=== PATIENT | male | born 1965 | race Hispanic/Latino ===

== ENCOUNTER 2021-09-30 10:00 | Observation (INO) | payer OTHER ==
[~2021-09-30] VITALS: Ht 177.8 cm; Wt 104.3 kg
[2021-09-30 10:44] LABS: BASOPHILS % (AUTO) 0.9 % (0.0-5.0); EOSINOPHILS % (AUTO) 1.4 % (0.0-8.0); MEAN CORPUSCULAR HEMOGLOBIN 30.5 pg (27.0-33.0); MEAN CORPUSCULAR HGB CONC 34.4 g/dL (32.0-36.0); MEAN CORPUSCULAR VOLUME 88.6 fL (79-99); MONOCYTES % (AUTO) 8.8 % (3.0-13.0); NEUTROPHILS % (AUTO) 62.4 % (40.0-77.0); PLATELET COUNT (AUTO) 240 K/uL (130-400); RED BLOOD CELL COUNT(AUTO) 4.63 MIL/uL (4.50-6.20); RED CELL DISTRIBUTION WIDTH 12.3 % (11.0-15.5); WHITE BLOOD COUNT (AUTO) 7.4 K/uL (4.8-10.8)
[2021-09-30 10:55] LABS: INR 1.04 (0.85-1.15); PROTHROMBIN TIME 11.3 SEC (9.6-11.6)
[2021-09-30 11:02] LABS: APPEARANCE,URINE Clear (CLEAR); BILIRUBIN,URINE Negative (NEGATIVE); COLOR,URINE Yellow (YELLOW); GLUCOSE, URINE (UA) Negative (NEGATIVE); KETONES,URINE Negative (NEGATIVE); LEUKOCYTE ESTERASE ,URINE Negative (NEGATIVE); NITRATE,URINE Negative (NEGATIVE); OCCULT BLOOD,URINE Negative (NEGATIVE); PROTEIN,URINE Negative (NEGATIVE)
[2021-09-30 11:02] LABS: CREATININE 0.9 mg/dL (0.5-1.5); POTASSIUM 4.1 mmol/L (3.5-5.1)
[2021-10-01 08:14] VITALS: BP 145/83
[2021-10-01] MEDS ORDERED: LEVO75CA5 PO (09:28)
[2021-10-01] MEDS ORDERED: ATOR40TA71 PO (09:28)
[2021-10-04] VITALS (28 sets, daily range): BP systolic 123–179; BP diastolic 59–96
[2021-10-04] MEDS: CEFAZOLIN SODIUM 2 GM VIAL IV SCH ×3 (05:00→18:18)
[2021-10-04] MEDS ORDERED: CEFAZOLIN SODIUM 1 GM VIAL ONE ×2 (08:49→10:12)
[2021-10-04] MEDS ORDERED: LACTATED RINGERS 1000ML 1,000 ML IV ONE (08:50)
[2021-10-04] MEDS ORDERED: SUCCINYLCHOLINE CHLORIDE 20 MG/ML 10 ML VIAL ONE (09:54)
[2021-10-04] MEDS ORDERED: DEXAMETHASONE SOD PHOSPHATE 10MG/ML 1ML VIAL ONE ×2 (09:54→11:32)
[2021-10-04] MEDS ORDERED: LIDOCAINE PF 100MG/5ML (2%) SYRINGE 5ML ONE (09:54)
[2021-10-04] MEDS ORDERED: ONDANSETRON 4MG INJ ONE (09:55)
[2021-10-04] MEDS ORDERED: MIDAZOLAM HCL 1 MG/ML 2ML VIAL ONE (09:55)
[2021-10-04] MEDS ORDERED: GLYCOPYRROLATE 1 MG/5 ML SYRINGE ONE (09:55)
[2021-10-04] MEDS ORDERED: NEOSTIGMINE 5MG/5ML SYR IV ONE (09:55)
[2021-10-04] MEDS ORDERED: FENTANYL CITRATE PF 50 MCG/1 ML 2ML VIAL ONE ×3 (09:55→14:11)
[2021-10-04] MEDS ORDERED: PROPOFOL 10 MG/ML 20ML VIAL IV ONE (09:55)
[2021-10-04] MEDS ORDERED: ROCURONIUM 10MG/1ML SYR 10 MG/ML ML ONE ×2 (09:56→11:45)
[2021-10-04] MEDS ORDERED: TRANEXAMIC ACID 1000MG/10ML ONE ×2 (10:12→15:19)
[2021-10-04] MEDS ORDERED: MEPERIDINE-PF 25 MG/ML SYG ONE ×2 (13:52→15:26)
[2021-10-04] MEDS ORDERED: CALCIUM CARB 500MG PO PRN (14:30)
[2021-10-04] MEDS ORDERED: POTASSIUM CHLORIDE 10% ELIXIR 20 MEQ/15 ML UDCUP PO PRN (14:30)
[2021-10-04] MEDS ORDERED: POTASSIUM CHLORIDE 20MEQ/100ML 100 ML IV PRN (14:30)
[2021-10-04] MEDS ORDERED: ONDANSETRON 4MG INJ IVP PRN (14:30)
[2021-10-04] MEDS ORDERED: KCL 20 MEQ ERTAB PO PRN (14:30)
[2021-10-04] MEDS ORDERED: TRAMADOL HCL 50 MG TABLET PO PRN (14:30)
[2021-10-04] MEDS ORDERED: FERROUS FUMARATE 324 MG TABLET PO PRN (14:30)
[2021-10-04] MEDS ORDERED: DiphenhydrAMINE HCL 50 MG/ML VIAL IVP PRN (14:30)
[2021-10-04] MEDS ORDERED: LIDOCAINE HCL-MPF 1% 2ML VIAL IV PRN (14:30)
[2021-10-04] MEDS: ACETAMINOPHEN 500 MG TABLET PO SCH ×2 (14:30→20:22)
[2021-10-04] MEDS ORDERED: TEMAZEPAM 15 MG CAPSULE PO PRN (14:30)
[2021-10-04] MEDS ORDERED: KETOROLAC 15MG/ML VIAL (15MG/ML) IV PRN (14:30)
[2021-10-04] MEDS ORDERED: 0.9%NACL 1000ML 1,000 ML IV SCH (14:30)
[2021-10-04] MEDS ORDERED: HYDRALAZINE 20MG/ML VIAL ONE (15:35)
[2021-10-04] MEDS: OXYCODONE HCL 5 MG TAB PO PRN ×2 (17:31→17:33)
[2021-10-04] MEDS ORDERED: FAMOTIDINE 20MG TAB ONE (19:17)
[2021-10-04] MEDS ORDERED: CELECOXIB 200 MG CAP ONE (19:17)
[2021-10-04] MEDS ORDERED: ATORVASTATIN 40 MG TABLET ONE (19:18)
[2021-10-04] MEDS ORDERED: ASPIRIN 81 MG EC TAB ONE (19:18)
[2021-10-04] MEDS ORDERED: PREGABALIN 25 MG CAP ONE (19:19)
[2021-10-04] MEDS: PREGABALIN 25 MG CAP PO SCH (20:21)
[2021-10-04] MEDS: CEFAZOLIN SODIUM 1 GM VIAL IVP SCH (20:21)
[2021-10-04] MEDS: CELECOXIB 200 MG CAP PO SCH (20:21)
[2021-10-04] MEDS: FAMOTIDINE 20MG TAB PO SCH (20:21)
[2021-10-04] MEDS: ATORVASTATIN 40 MG TABLET PO SCH (20:22)
[2021-10-04] MEDS: ASPIRIN 81 MG EC TAB PO SCH (20:22)
[2021-10-05] MEDS: CEFAZOLIN SODIUM 1 GM VIAL IVP SCH (02:57)
[2021-10-05] MEDS: OXYCODONE HCL 5 MG TAB PO PRN ×5 (03:04→23:35)
[2021-10-05 04:00] VITALS: BP 122/64
[2021-10-05 05:33] LABS: HEMATOCRIT 35.2 % (42-54); MEAN CORPUSCULAR HEMOGLOBIN 30.3 pg (27.0-33.0); MEAN CORPUSCULAR HGB CONC 33.8 g/dL (32.0-36.0); MEAN CORPUSCULAR VOLUME 89.6 fL (79-99); RED BLOOD CELL COUNT(AUTO) 3.93 MIL/uL (4.50-6.20); RED CELL DISTRIBUTION WIDTH 12.5 % (11.0-15.5); WHITE BLOOD COUNT (AUTO) 12.4 K/uL (4.8-10.8)
[2021-10-05] MEDS: LEVOTHYROXINE 75 MCG TABLET PO SCH (05:59)
[2021-10-05] MEDS: ACETAMINOPHEN 500 MG TABLET PO SCH ×3 (05:59→20:55)
[2021-10-05 07:25] VITALS: BP 126/63
[2021-10-05] MEDS: POLYETHYLENE GLYCOL 3350 17 GM POWD.PACK PO SCH (08:00)
[2021-10-05] MEDS: CELECOXIB 200 MG CAP PO SCH ×2 (08:01→20:14)
[2021-10-05] MEDS: TAMSULOSIN HCL 0.4 MG CAP.ER.24H PO SCH (08:01)
[2021-10-05] MEDS: ASPIRIN 81 MG EC TAB PO SCH ×2 (08:02→20:14)
[2021-10-05] MEDS: FAMOTIDINE 20MG TAB PO SCH ×2 (08:02→20:14)
[2021-10-05] MEDS: PREGABALIN 25 MG CAP PO SCH ×2 (08:02→20:14)
[2021-10-05 11:00] VITALS: BP 139/77
[2021-10-05 15:20] VITALS: BP 145/54
[2021-10-05 20:00] VITALS: BP 121/61
[2021-10-05] MEDS: ATORVASTATIN 40 MG TABLET PO SCH (20:14)
[2021-10-06] VITALS: BP 126/62
[2021-10-06] MEDS: CEFAZOLIN SODIUM 2 GM VIAL IV SCH (00:36)
[2021-10-06 04:00] VITALS: BP 156/66
[2021-10-06] MEDS: LEVOTHYROXINE 75 MCG TABLET PO SCH (05:18)
[2021-10-06] MEDS: ACETAMINOPHEN 500 MG TABLET PO SCH ×2 (06:16→15:12)
[2021-10-06 08:07] VITALS: BP 120/59
[2021-10-06] MEDS: CELECOXIB 200 MG CAP PO SCH (08:44)
[2021-10-06] MEDS: PREGABALIN 25 MG CAP PO SCH (08:45)
[2021-10-06] MEDS: OXYCODONE HCL 5 MG TAB PO PRN ×3 (08:45→17:20)
[2021-10-06] MEDS: ASPIRIN 81 MG EC TAB PO SCH (08:45)
[2021-10-06] MEDS: TAMSULOSIN HCL 0.4 MG CAP.ER.24H PO SCH (08:45)
[2021-10-06] MEDS: FAMOTIDINE 20MG TAB PO SCH (08:45)
[2021-10-06] MEDS: POLYETHYLENE GLYCOL 3350 17 GM POWD.PACK PO SCH (08:45)
[2021-10-06 10:57] VITALS: BP 123/77
[2021-10-06 15:57] VITALS: BP 120/58
[2021-10-06] MEDS ORDERED: HYDR-4060 PO (16:52)
[2021-10-06] MEDS ORDERED: AEC81 PO (16:52)
[2021-10-07] MEDS ORDERED: BISACODYL 10 MG SUPP.RECT RC PRN (14:30)
== END 2021-10-06 20:33 | disposition home health service (06) ==
LOC: INTOOBSV 10-04 08:16 → DAHIP 10-04 08:16 → EDSTATUS 10-04 09:20 → 4CH 10-04 16:29 → 3BH 10-05 05:10
PROVIDERS: ADMIT Orthopaedic Surgery; ATTEND Orthopaedic Surgery
DX: M17.32 Unilateral post-traumatic osteoarthritis, left knee (principal); Z20.822 Contact with and (suspected) exposure to COVID-19; D62 Acute posthemorrhagic anemia; E03.9 Hypothyroidism, unspecified; E78.00 Pure hypercholesterolemia, unspecified; Z79.899 Other long term (current) drug therapy; Z98.890 Other specified postprocedural states
CPT/HCPCS: 36415; 64447; 76942; 80048; 81003; 85025; 85027; 85610; 87088; 87635; 87641; 96374; 96375; 96376; 97039; G0378; J0330; J0360; J0690; J1100; J1885; J2001; J2175; J2250; J2405; J2704; J2710; J3010; J3490; J7120